=== PATIENT | female | born 1945 | race Caucasian/White ===

== ENCOUNTER 2023-09-04 12:01 | Emergency (ER) | payer MEDICARE ==
[~2023-09-04] VITALS: Ht 154.9 cm; Wt 72.6 kg
[2023-09-04 12:02] VITALS: BP 190/79; PULSE 69; RESP 20; TEMP 97.9; O2SAT 98
[2023-09-04] MEDS: MORPHINE SULFATE 4 MG/ML SYR IM ONE (13:27)
[2023-09-04] MEDS ORDERED: ACET-5629 PO (13:35)
[2023-09-04 16:16] VITALS: BP 166/62; PULSE 57; RESP 18; TEMP 98; O2SAT 98
== END 2023-09-04 16:16 | disposition home or self-care (01) ==
LOC: MED 12:01
DX: M79.662 Pain in left lower leg (principal); R22.42 Localized swelling, mass and lump, left lower limb; Z79.899 Other long term (current) drug therapy
CPT/HCPCS: 93971; 96372; 99285; J2270; Q0092